=== PATIENT | male | born 1985 | race Caucasian/White ===

== ENCOUNTER 2023-05-24 10:07 | Outpatient (CLI) | payer OTHER ==
--- NOTE | 2023-05-24 14:57 | MRI Report ---
PROCEDURE: ELBOW WO - RT INDICATIONS: PAIN IN R ELBOW TECHNIQUE: Noncontrast coronal proton density fast spin echo and T2 fast spin echo with fat saturation, axial an d sagittal T1 spin echo and T2 fast spin echo with fat saturation through the elbow. COMPARISON: None. FINDINGS: Image quality: Excellent. Lateral structures: The lateral ulnar collateral ligament and radial collateral ligament both appear thickened with intrasubstance T2 hyperintense signal at their lateral epicondyle insertion. The ove rlying common extensor tendon also appears thickened with intrasubstance T2 hyperintense signal at it s lateral epicondylar insertion. Medial structures: The ulnar collateral ligament appears intact. The overlying common flexor tendon appears normal. The ulnar nerve appears normal in size and signal within the cubital tunnel. Anterior structures: The biceps and brachialis tendons both appear intact as they insert onto the pr oximal radius and ulna, respectively. No bicipitoradial bursal fluid. The median and radial neurova scular bundles appear normal; no focal muscle atrophy to suggest nerve impingement. Posterior structures: The triceps tendon appears intact. No olecranon bursal fluid. Bone and cartilage: Moderate joint effusion is noted. No bone marrow contusions or fractures. Tiny a mihcelle of T2 hyperintense signal involving medial aspect of radial head and anterior aspect of capitellu m are seen consistent with tiny osteochondral injuries. 1.2 x 1.2 x 0.6 cm loose body anterior to dis josette humeral shaft is seen. IMPRESSION: 1. Moderate joint effusion. Tiny osteochondral injuries involving radial head and adjacent capitellum as above. No fracture or dislocation. 1.2 x 1.2 x 0.6 cm loose body anterior to distal humeral shaft . 2. Suggestion of lateral epicondylitis with tendinosis involving common extensor tendon origin at lat eral epicondyle and low-grade partial-thickness tear involving lateral collateral ligaments. Reviewed by: Crow Martinez MD on 05/24/2023 2:56 PM PDT Approved by: Crow Martinez MD on 05/24/2023 2:56 PM PDT Station ID: [id number]
== END 2023-05-24 10:08 | disposition home or self-care (01) ==
LOC: DI 10:07
PROVIDERS: ATTEND Preventive Medicine Aerospace Medicine
DX: M25.421 Effusion, right elbow (principal); S53.491A Other sprain of right elbow, initial encounter; M24.021 Loose body in right elbow

== ENCOUNTER 2023-07-24 08:00 | Outpatient (CLI) | payer OTHER ==
--- NOTE | 2023-07-24 13:09 | XRAY Report ---
PROCEDURE: Elbow 3 View RT INDICATIONS: RIGHT ELBOW PAIN TECHNIQUE: 3 views of the elbow were acquired. COMPARISON: MRI elbow 05/24/2023 FINDINGS: Bones: No fractures or dislocations previously identified osteochondral injuries of the radial head and capitellum are better appreciated on MRI. Soft tissues: Mild effusion. No suspicious soft tissu e calcifications or masses. IMPRESSION: Mild effusion. Reviewed by: Valeri Guajardo MD on 07/24/2023 1:08 PM PDT Approved by: Valeri Guajardo MD on 07/24/2023 1:08 PM PDT Station ID: [id number]
== END 2023-07-24 23:59 | disposition home or self-care (01) ==
LOC: DI.WOS 08:00
PROVIDERS: ATTEND Physician Assistant Surgical
DX: M25.521 Pain in right elbow (principal); M25.421 Effusion, right elbow

== ENCOUNTER 2024-05-08 07:08 | Outpatient (CLI) | payer OTHER ==
--- NOTE | 2024-05-09 01:10 | XRAY Report ---
PROCEDURE: Shoulder 2+V RT INDICATIONS: PAIN IN RIGHT SHOULDER TECHNIQUE: 3 views of the shoulder were acquired. COMPARISON: None FINDINGS: Bones: No fractures or dislocations. No suspicious bony lesions. Visualized ribs appear intact. Soft tissues: No suspicious soft tissue calcifications. IMPRESSION: Unremarkable shoulder radiographs Reviewed by: Jim Belcher MD on 05/09/2024 12:08 AM [email or web address] Approved by: Jim Belcher MD on 05/09/2024 12:08 AM AKDT Station ID: [id number]
== END 2024-05-08 07:09 | disposition home or self-care (01) ==
LOC: DI 07:08
PROVIDERS: ATTEND Orthopaedic Surgery
DX: M25.511 Pain in right shoulder (principal)